=== PATIENT | female | born 1945 | race Caucasian/White ===

== ENCOUNTER 2017-02-23 09:20 | Outpatient (CLI) | payer MEDICARE, OTHER ==
--- NOTE | 2017-02-23 16:14 | DEXA Report ---
NO INDICATION GIVEN PLEASE VERIFY REQUESTED SPECIFICS re: USE T-SCORE FOR L3 ONLY (remove from other levels?); only T-score for radius? UNSURE - ONLY USE PART(S) OF THE TABLE/WHAT REMOVED? DEXA SCAN: 02/23/2017 *NOTE RADIUS/ULNA USED INSTEAD OF HIP. *USE LUMBAR T-SCORE FOR L3 ONLY. *USE TOTAL RADIUS T-SCORE OF -2.8. INDICATION: TECHNIQUE: Dual energy x-ray absorptiometry (DXA) was performed on a [employer] system. Regions measured are the AP spine, femoral neck, and, if needed, forearm. COMPARISON: None. In accordance with the International Society for Clinical Densitometry (ISCD) guidelines, data from previous exams may be reanalyzed using current recommendations and techniques. This is done to allow a more accurate basis for comparison with the current study. FINDINGS Data for the lumbar spine is as follows: REGION BMD (g/cm/cm) T-SCORE Z-SCORE L1 0.957 --- 0.2 L2 0.967 --- -0.3 L3 1.049 -1.3 0.4 L4 1.311 --- 2.6 TOTAL 1.076 -0.9 0.8 NOTE: All evaluable vertebrae are used for classification. Data for the forearm is as follows: REGION BMD (g/cm/cm) T-SCORE Z-SCORE Radius 1/3 0.732 -1.6 --- Radius Total 0.504 -2.8 --- NOTE: The 33% radius of the non-dominant forearm is used for classification. IMPRESSION: THE WHO CLASSIFICATION BASED ON THE INTERNATIONAL REFERENCE STANDARD IS OSTEOPOROSIS. FRACTURE RISK IS INCREASED. RECOMMENDATION: Patients with diagnosis of osteoporosis or osteopenia should have regular bone mineral density assessment. For those eligible for Medicare, routine testing is allowed once every 2 years. Testing frequency can be increased for patients who have rapidly progressing disease or for those who are receiving medical therapy to restore bone mass. COMMENT: World Health Organization (WHO) definitions for osteoporosis and osteopenia: NORMAL BMD: T-score at -1.0 or higher, fracture risk is low. OSTEOPENIA BMD: T-score between -1.0 and -2.5, fracture risk is increased. OSTEOPOROSIS BMD: T-score at -2.5 or lower, fracture risk high. National Osteoporosis Foundation recommends: 1. Obtain adequate dietary calcium (at least 1200 mg per day) and vitamin D (400 -800 international units per day). 2. Participate, as appropriate, in regular weightbearing and muscle- strengthening exercise. 3. Avoid tobacco use and reduce alcohol and caffeine intake. 4. For more detailed information see the website at www.NOF.org. MTDD
== END 2017-02-23 09:21 | disposition home or self-care (01) ==
LOC: DI 09:20
PROVIDERS: ATTEND Physician Assistant
DX: M81.0 Age-related osteoporosis without current pathological fracture (principal)
CPT/HCPCS: 77080; 77081

== ENCOUNTER 2017-02-23 09:22 | Outpatient (CLI) | payer MEDICARE, OTHER ==
--- NOTE | 2017-02-25 10:11 | Mammography Report ---
INCOMPLETE - FLAGGED FOR NORMAL REQUESTED FOR BILAT. SCR. MAMMO, BUT WHICH NORMAL TEMPLATE NOT IDENTIFIED DIGITAL BILATERAL SCREENING MAMMOGRAM: 02/23/2017 COMPARISON STUDY: Mammogram 12/29/2012. Indication: Screening Mammography Technique: Bilateral MLO and CC breast views Findings: The breast parenchyma is extremely dense which may lower the sensitivity of mammography. There is no mass, architechtural distortion, or concerning cluster of microcalcifications. There are stable postoperative changes of the left breast. IMPRESSION BIRADS CATEGORY 2, BENIGN FINDINGS. Recommend annual screening mammography. JOB #: [id number] EXT JOB #: [id number] [facility]Jose Martin
== END 2017-02-23 09:23 | disposition home or self-care (01) ==
LOC: DI 09:22
PROVIDERS: ATTEND Physician Assistant
DX: Z12.31 Encounter for screening mammogram for malignant neoplasm of breast (principal)
CPT/HCPCS: 77067

== ENCOUNTER 2017-08-27 15:33 | Outpatient (CLI) | payer MEDICARE, OTHER ==
--- NOTE | 2017-08-27 19:24 | XRAY Preliminary Report ---
Exam: XR KNEE 3 VIEW RT IMPRESSION: 1. No acute nor subacute bony abnormality. 2. Tiny joint effusion. 3. 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 [facility] SITE ID: [id number]
--- NOTE | 2017-08-27 19:27 | XRAY Preliminary Report ---
Exam: XR HIP W/PELVIS 2-3V RT IMPRESSION: 1. No acute bony abnormality. 2. Fracture of the right intramedullary screws of indeterminate age. [facility] SITE ID: [id number]
--- NOTE | 2017-08-27 19:30 | XRAY Preliminary Report ---
Exam: XR FEMUR 1V RT IMPRESSION: 1. No acute nor subacute bony abnormality. 2. Fracture of the base of the intramedullary hardware right femoral neck of indeterminate age. [facility] SITE ID: [id number]
--- NOTE | 2017-08-27 19:33 | XRAY Report ---
EXAM: RIGHT KNEE RADIOGRAPHY EXAM DATE: 08/27/2017 04:10 PM. CLINICAL HISTORY: Fall on 07/09/2017. Right knee pain. COMPARISON: None. TECHNIQUE: 3 views. FINDINGS: Bones: Normal. No fractures or bone lesions. Partial visualization of the femoral diaphyseal intramed ullary samson. Joints: Moderate narrowing lateral aspect patellofemoral compartment with moderate osteophytes and mi ld subcortical sclerosis. Normal caliber medial and lateral joint compartments. Bones in anatomic ali gnment. Very tiny joint effusion. Soft Tissues: Normal. No soft tissue swelling. IMPRESSION: 1. No acute nor subacute bony abnormality. 2. Tiny joint effusion. 3. Mild chondromalacia patella, grade 2 by Kellgren Ajay classification. [facility] Referring Provider Line: [phone] SITE ID: [id number]
--- NOTE | 2017-08-27 19:42 | XRAY Report ---
EXAM: RIGHT HIP AND PELVIS RADIOGRAPHY EXAM DATE: 08/27/2017 04:11 PM. HISTORY: Fall 07/09/2017. Right hip pain. COMPARISONS: None. TECHNIQUE: 1 view of the pelvis and 1 view of the hip. FINDINGS: Bones: Normal. No fracture or bone lesion. Joints: Remote ORIF left femoral neck. Remote ORIF right femoral neck, with subsequent bone graft and cerclage wires piggyback on the latera l aspect proximal third right femur. Fracture of the bases of the intramedullary screws traversing th e femoral neck. Marked degenerative disk disease L4-L5 and L5-S1. Mild degenerative changes both hips. Soft Tissues: Normal. No soft tissue swelling. IMPRESSION: 1. No acute bony abnormality. 2. Fracture of the right femoral neck intramedullary screws of indeterminate age. [facility] Referring Provider Line: [phone] SITE ID: [id number]
--- NOTE | 2017-08-27 19:43 | XRAY Report ---
EXAM: RIGHT FEMUR RADIOGRAPHY EXAM DATE: 08/27/2017 04:10 PM. CLINICAL HISTORY: Fall 07/09/2017. Persistent pain since then. COMPARISON: None. TECHNIQUE: 4 views. FINDINGS: Bones: Normal. No fracture or bone lesion. Joints: Tiny right knee effusion. Remote ORIF right femoral neck with subsequent bone graft and cerclage wires off the lateral aspect p roximal third right femur. Fracture through the base of the intramedullary component right femoral neck. Restless surgical hardw are intact without evidence of migration. Mild degenerative changes right hip. Soft Tissues: Normal. No soft tissue swelling. IMPRESSION: 1. No acute nor subacute bony abnormality. 2. Fracture of the base of the intramedullary hardware right femoral neck of indeterminate age. [facility] Referring Provider Line: [phone] SITE ID: [id number]
== END 2017-08-27 15:34 | disposition home or self-care (01) ==
LOC: DI.N 15:33
PROVIDERS: ATTEND Physician Assistant
DX: T84.114A Breakdown (mechanical) of internal fixation device of right femur, initial encounter (principal); M25.461 Effusion, right knee; M22.41 Chondromalacia patellae, right knee

== ENCOUNTER 2018-02-23 08:49 | Outpatient (CLI) | payer MEDICARE, OTHER ==
--- NOTE | 2018-02-24 11:07 | Mammography Report ---
Reason: SCREENING MAMMO Procedure Date: 02/23/2018 Accession Number: [id number] / [id number] Procedure: MGN - Screening Mammo Dig Bilat CPT Code: FULL RESULT: EXAM: Screening Mammo Dig Bilat DATE: 02/23/2018 9:14 AM CLINICAL HISTORY: Routine screening, family history of breast cancer, personal history of breast biopsy. TECHNIQUE: Bilateral CC and MLO views were obtained. COMPARISON: 02/23/2017, 05/22/2015, 12/29/2012, 12/10/2010 FINDINGS: The breast tissue is heterogeneously dense. No significant interval change. No suspicious masses, clustered microcalcifications, or regions of architectural distortion are identified. Extensive benign-appearing calcifications as before. IMPRESSION: Benign findings RECOMMENDATION: Routine annual screening unless otherwise clinically indicated. BIRADS CATEGORY 2: Benign findings STANDARD QUALIFYING STATEMENTS: 1. This examination was reviewed with the aid of Computer-Aided Detection (CAD). 2. A negative or benign imaging report should not delay biopsy if clinically suspicious findings are present. Consider surgical consultation if warrented. More than 5% of cancers are not identified by imaging. 3. Dense breasts may obscure an underlying neoplasm.
== END 2018-02-23 08:50 | disposition home or self-care (01) ==
LOC: DI.N 08:49
PROVIDERS: ATTEND Physician Assistant
DX: Z12.31 Encounter for screening mammogram for malignant neoplasm of breast (principal); Z80.3 Family history of malignant neoplasm of breast
CPT/HCPCS: 77067

== ENCOUNTER 2018-02-24 10:09 | Outpatient (CLI) | payer MEDICARE, OTHER ==
--- NOTE | 2018-02-25 09:51 | DEXA Report ---
Reason: OSTEOPOROSIS Procedure Date: 02/24/2018 Accession Number: [id number] / [id number] Procedure: DEX - Dexa Spine and/or Hip CPT Code: FULL RESULT: EXAM: Dexa Spine and/or Hip, Dexa Forearm DATE: 02/24/2018 11:00 AM CLINICAL HISTORY: OSTEOPOROSIS. Postsurgical changes bilateral hips. TECHNIQUE: Dual energy x-ray absorptiometry (DXA) was performed on a [employer] System. Regions measured are the AP Spine, femoral neck, and if needed forearm. COMPARISON: 02/23/2017 In accordance with the International Society for Clinical Densitometry (ISCD) guidelines, data from previous exams may be reanalyzed using current recommendations and techniques. This is done to allow a more accurate basis for comparison with the current study. FINDINGS: The data for the lumbar spine is as follows: BMD (g/cm/cm) T-SCORE Z-SCORE REGION L1 1.023 -0.9 0.8 L2 0.974 -1.9 -0.2 L3 1.122 -0.7 1.1 L4 1.437 2.0 3.7 TOTAL 1.164 -0.1 1.6 NOTE: All evaluable vertebrae are used for classification The data for the Left forearm is as follows: BMD (g/cm/cm) T-SCORE Z-SCORE REGION 1/3 0.754 -1.4 0.8 NOTE: The 33% radius of the nondominant forearm is used for classification. DXA RESULTS SUMMARY: Spine SCAN DATE AGE BMD CHANGE VS CHANGE VS PREVIOUS PREVIOUS % 02[birth year]24/2018 [age] 1.89 0.088* 8.2* 02/23/2017 [age] 1.076 * Denotes significant change at the 95% confidence level. Denotes dissimilar scan types or analysis methods. DXA RESULTS SUMMARY: Forearm SCAN DATE [age]GE BMD CHANGE VS CHANGE VS PREVIOUS PREVIOUS % 02[birth year]24/2018 [age] 0.754 0.022 3.0 02/23/2017 [age] 0.732 * Denotes significant change at the 95% confidence level. Denotes dissimilar scan types or analysis methods. IMPRESSION: THE WHO CLASSIFICATION BASED ON THE INTERNATIONAL REFERENCE STANDARD IS OSTEOPENIA. THE FRACTURE RISK IS INCREASED. RECOMMENDATION: Patients with diagnosis of osteoporosis or osteopenia should have regular bone mineral density assessment. For those eligible for Medicare, routine testing is allowed once every 2 years. Testing frequency can be increased for patients who have rapidly progressing disease or for those who are receiving medical therapy to restore bone mass. COMMENT: World Health Organization (WHO) definitions for osteoporosis and osteopenia: NORMAL BMD: T-score at -1.0 or higher, fracture risk is low OSTEOPENIA BMD: T-score between -1.0 and -2.5, fracture risk is increased. OSTEOPOROSIS BMD: T-score at -2.5 or lower, fracture risk is high. National Osteoporosis Foundation recommends: 1. Obtain adequate dietary calcium (at least 1200 mg per day) and vitamin D (400-800 international units per day). 2. Participate, as appropriate, in regular weightbearing and muscle-strengthening exercise. 3. Avoid tobacco use and reduce alcohol and caffeine intake. 4. For more detailed information see the website at www.NOF.org.
--- NOTE | 2018-02-25 09:51 | DEXA Report ---
Reason: OSTEOPOROSIS Procedure Date: 02/24/2018 Accession Number: [id number] / [id number] Procedure: DEX - Dexa Forearm CPT Code: FULL RESULT: EXAM: Dexa Spine and/or Hip, Dexa Forearm DATE: 02/24/2018 11:00 AM CLINICAL HISTORY: OSTEOPOROSIS. Postsurgical changes bilateral hips. TECHNIQUE: Dual energy x-ray absorptiometry (DXA) was performed on a [employer] System. Regions measured are the AP Spine, femoral neck, and if needed forearm. COMPARISON: 02/23/2017 In accordance with the International Society for Clinical Densitometry (ISCD) guidelines, data from previous exams may be reanalyzed using current recommendations and techniques. This is done to allow a more accurate basis for comparison with the current study. FINDINGS: The data for the lumbar spine is as follows: BMD (g/cm/cm) T-SCORE Z-SCORE REGION L1 1.023 -0.9 0.8 L2 0.974 -1.9 -0.2 L3 1.122 -0.7 1.1 L4 1.437 2.0 3.7 TOTAL 1.164 -0.1 1.6 NOTE: All evaluable vertebrae are used for classification The data for the Left forearm is as follows: BMD (g/cm/cm) T-SCORE Z-SCORE REGION 1/3 0.754 -1.4 0.8 NOTE: The 33% radius of the nondominant forearm is used for classification. DXA RESULTS SUMMARY: Spine SCAN DATE AGE BMD CHANGE VS CHANGE VS PREVIOUS PREVIOUS % 02[birth year]24/2018 [age] 1.164 0.088* 8.2* 02/23/2017 71.9 1.076 * Denotes significant change at the 95% confidence level. Denotes dissimilar scan types or analysis methods. DXA RESULTS SUMMARY: Forearm SCAN DATE AGE BMD CHANGE VS CHANGE VS PREVIOUS PREVIOUS % 02/24/2018 [age] 0.754 0.022 3.0 02/23/2017 71.9 0.732 * Denotes significant change at the 95% confidence level. Denotes dissimilar scan types or analysis methods. IMPRESSION: THE WHO CLASSIFICATION BASED ON THE INTERNATIONAL REFERENCE STANDARD IS OSTEOPENIA. THE FRACTURE RISK IS INCREASED. RECOMMENDATION: Patients with diagnosis of osteoporosis or osteopenia should have regular bone mineral density assessment. For those eligible for Medicare, routine testing is allowed once every 2 years. Testing frequency can be increased for patients who have rapidly progressing disease or for those who are receiving medical therapy to restore bone mass. COMMENT: World Health Organization (WHO) definitions for osteoporosis and osteopenia: NORMAL BMD: T-score at -1.0 or higher, fracture risk is low OSTEOPENIA BMD: T-score between -1.0 and -2.5, fracture risk is increased. OSTEOPOROSIS BMD: T-score at -2.5 or lower, fracture risk is high. National Osteoporosis Foundation recommends: 1. Obtain adequate dietary calcium (at least 1200 mg per day) and vitamin D (400-800 international units per day). 2. Participate, as appropriate, in regular weightbearing and muscle-strengthening exercise. 3. Avoid tobacco use and reduce alcohol and caffeine intake. 4. For more detailed information see the website at www.NOF.org.
== END 2018-02-24 10:10 | disposition home or self-care (01) ==
LOC: DI 10:09
PROVIDERS: ATTEND Physician Assistant
DX: M85.88 Other specified disorders of bone density and structure, other site (principal); N95.8 Other specified menopausal and perimenopausal disorders
CPT/HCPCS: 77080; 77081

== ENCOUNTER 2018-04-20 15:17 | Outpatient (CLI) | payer MEDICARE, OTHER | END 2018-04-20 15:18 | disposition critical access hospital (66) | LOC: EMS 15:17 | PROVIDERS: ATTEND Surgery | DX: R07.9 Chest pain, unspecified (principal); R53.83 Other fatigue | CPT/HCPCS: A0425; A0427 ==

== ENCOUNTER 2018-04-20 15:37 | Emergency (ER) | payer MEDICARE, OTHER ==
--- NOTE | 2018-04-20 15:39 | ED Physician Documentation ---
PD HPI CHEST PAIN - Stated complaint Stated Complaint: CHESTPX - History obtained from History obtained from: Patient, EMS - History of Present Illness Timing - onset: Today Timing - onset during: Light activity Timing - duration: Minutes (15-20 minutes, then resolved with NTG x 2.) Timing - details: Abrupt onset, Now resolved. No: Still present Quality: Pressure, Tightness Location: Substernal Radiation: Neck. No: Back Improved by: Nitro (took NTG for first time with this; had gotten Rx from Cardiology on recent visit (Dr. Cabrera). Has ECHO/nuclear stress scheduled for Jun 10.). No: Rest Worsened by: No: Exertion Associated symptoms: Shortness of air, Feeling faint / dizzy. No: Nausea, Palpitations, Cough Similar symptoms before: No diagnosis (has had pressure episodes not strictly exertional for the past 2 months. can occur with activity or at rest, and can do activity without the pain at times too.) Recently seen: Clinic Review of Systems Constitutional: denies: Fever, Chills Nose: denies: Rhinorrhea / runny nose, Congestion Throat: denies: Sore throat Respiratory: denies: Cough GI: denies: Abdominal Pain, Nausea, Vomiting Skin: denies: Rash, Lesions Musculoskeletal: denies: Neck pain, Back pain Neurologic: reports: Generalized weakness. denies: Focal weakness, Numbness, Near syncope PD PAST MEDICAL HISTORY - Past Medical History Cardiovascular: Hypertension, [place] Endocrine/Autoimmune: Type 2 diabetes Musculoskeletal: Osteoarthritis, Osteoporosis - Past Surgical History Cardiovascular: Angioplasty - Present Medications Home Medications: Ambulatory Orders Medication Instructions Recorded Confirmed Aspirin 04/20/18 04/20/18 Atorvastatin [Lipitor] 04/20/18 Insulin Aspart [NovoLOG] 04/20/18 Insulin Glargine [Lantus Solostar] 0 unit 04/20/18 Lisinopril 04/20/18 Metoprolol Succinate [Toprol Xl] 25 mg PO DAILY #20 tablet 04/20/18 - Allergies Allergies/Adverse Reactions: Allergies Allergy/AdvReac Type Severity Reaction Status Date / Time No Known Drug Allergies Allergy Verified 04/20/18 15:56 PD ED PE NORMAL - Vitals Vital signs reviewed: Yes - General General: Alert and oriented X 3, No acute distress, Well developed/nourished - HEENT HEENT: Pharynx benign - Neck Neck: Supple, no meningeal sign, No adenopathy - Cardiac Cardiac: RRR, No murmur - Respiratory Respiratory: Clear bilaterally - Abdomen Abdomen: Soft, Non tender - Derm Derm: Normal color, Warm and dry - Extremities Extremities: No tenderness to palpate, Normal ROM s pain, No edema, No calf ten derness / cord Results - Vitals Vitals: Oxygen O2 Source Room air - EKG (time done) 17:42 Rate: Rate (enter#) Rhythm: NSR (75) Steele: Normal Intervals: Normal NM QRS: Normal Ischemia: Normal ST segments. No: ST elevation c/w ischemia, ST depression - Labs Labs: Laboratory Tests 04/20/18 04/20/18 04/20/18 16:23 16:23 16:23 WBC 8.1 RBC 3.96 L Hgb 12.1 Hct 35.2 L MCV 88.8 MCH 30.6 MCHC 34.4 RDW 14.2 Plt Count 161 MPV 9.7 Neut # (Auto) 5.8 Lymph # (Auto) 1.5 [place] # (Auto) 0.6 Eos # (Auto) 0.1 Baso # (Auto) 0.1 Absolute Nucleated RBC 0.00 Nucleated RBC % 0.0 Sodium 136 Potassium 3.9 Chloride 102 Carbon Dioxide 25 Anion Gap 9.0 BUN 30 H Creatinine 1.3 H Estimated GFR (MDRD) 40 L Glucose 301 H Calcium 9.1 Total Bilirubin 0.6 AST 19 ALT 18 Alkaline Phosphatase 60 Troponin I < 0.04 Total Protein 6.8 Albumin 3.9 Globulin 2.9 Albumin/Globulin Ratio 1.3 Lipase 58 H 04/20/18 18:20 WBC RBC Hgb Hct MCV MCH MCHC RDW Plt Count MPV Neut # (Auto) Lymph # (Auto) [place] # (Auto) Eos # (Auto) Baso # (Auto) Absolute Nucleated RBC Nucleated RBC % Sodium Potassium Chloride Carbon Dioxide Anion Gap BUN Creatinine Estimated GFR (MDRD) Glucose Calcium Total Bilirubin AST ALT Alkaline Phosphatase Troponin I < 0.04 Total Protein Albumin Globulin Albumin/Globulin Ratio Lipase - Rads (name of study) chest xray Radiology: Prelim report reviewed, EMP read contemporaneously (normal) PD MEDICAL DECISION MAKING - ED course Complexity details: considered differential, d/w patient, d/w sap portal consultant (radio electronics technician cardiology, who said the patient is not on antianginal meds regularly and would want to start those (beta himanshu and then nitrates) and would need to have symptoms with both those before considered candidate for urgent PCI, unless ECG or Troponin changes, or fails stratifying tests. ) Departure - Departure Disposition: 01 Home, Self Care Clinical Impression: Progressive angina Chest pain Qualifiers: Chest pain type: precordial pain Qualified Code(s): R07.2 - Precordial pain Condition: Stable Record reviewed to determine appropriate education?: Yes Instructions: ED Chest Pain Angina Stable Follow-Up: Ella Armijo PA-C [Primary Care Provider] - Jamie Cabrera MD [Physician No Access] - Prescriptions: Metoprolol Succinate [Toprol Xl] 25 mg PO DAILY #20 tablet Comments: Talk to the on-call hand laminator for Dr. Cabrera. He stated chest pain episodes are worrisome for angina and they will want to investigate it more promptly/urgently than the scheduled tests in May. Dr. Cabrera's office will call you tomorrow to set up something more promptly. However he did not feel that it met the level of urgency of needing to have you transferred to their hospital but would treated with anti-anginal medicines more aggressively. We will add metoprolol daily. Continue with the nitroglycerin when needed for chest pain episodes. If you still have occasional chest pain episodes, we can also add a long-acting oral nitrate but the hand laminator on-call did not want to add to medicines together right now. Return if worsening or persistent pain despite the nitroglycerin and again follow-up with Dr. Cabrera's office tomorrow. Discharge Date/Time: 04/20/18 21:05
[2018-04-20 16:34] LABS: BASOPHILS # (AUTO) 0.1 10^3/uL (0.0-0.1); BASOPHILS % (AUTO) 0.7 %; EOSINOPHILS # (AUTO) 0.1 10^3/uL (0.0-0.7); EOSINOPHILS % (AUTO) 1.5 %; HGB - HEMOGLOBIN 12.1 g/dL (12.0-16.0); LYMPHOCYTES # (AUTO) 1.5 10^3/uL (1.5-3.5); LYMPHOCYTES % (AUTO) 18.6 %; MEAN CORPUSCULAR HEMOGLOBIN 30.6 pg (27.0-31.0); MEAN CORPUSCULAR HGB CONC 34.4 g/dL (32.0-36.0); MEAN CORPUSCULAR VOLUME 88.8 fL (81.0-99.0); MEAN PLATELET VOLUME 9.7 fL (7.9-10.8); MONOCYTES # (AUTO) 0.6 10^3/uL (0.0-1.0); MONOCYTES % (AUTO) 7.7 %; NEUTROPHILS # (AUTO) 5.8 10^3/uL (1.5-6.6); NEUTROPHILS % (AUTO) 71.5 %; PLT - PLATELET COUNT 161 10^3/uL (130-450); RED BLOOD COUNT 3.96 10^6/uL (4.20-5.40); RED CELL DISTRIBUTION WIDTH 14.2 % (12.0-15.0); WHITE BLOOD COUNT 8.1 x10^3/uL (4.8-10.8)
[2018-04-20 16:47] LABS: ALBUMIN 3.9 g/dL (3.2-5.5); ALBUMIN/GLOBULIN RATIO 1.3 (1.0-2.2); BILIRUBIN,TOTAL 0.6 mg/dL (0.2-1.0); CALCIUM 9.1 mg/dL (8.5-10.3); CREATININE 1.3 mg/dL (0.4-1.0); TOTAL PROTEIN 6.8 g/dL (6.7-8.2)
--- NOTE | 2018-04-20 16:57 | XRAY Report ---
Reason: chest pain Procedure Date: 04/20/2018 Accession Number: [id number] / [id number] Procedure: XR - Chest 1 View X-Ray CPT Code: 43025 FULL RESULT: EXAM: CHEST RADIOGRAPHY EXAM DATE: 04/20/2018 04:42 PM. CLINICAL HISTORY: Left-sided chest pain for 1 hour. COMPARISON: None. TECHNIQUE: 1 view. FINDINGS: Lungs/Pleura: No focal opacities evident. No pleural effusion. No pneumothorax. Mediastinum: Within exam limitations, the cardiomediastinal contour is normal. Other: Several old left rib fractures. Cholecystectomy. IMPRESSION: Normal single view chest. [facility]
[2018-04-20] MEDS: NITROGLYCERIN SL 0.4 MG TABLET SL STA (19:31)
[2018-04-20] MEDS: METOPROLOL 5 MG/5 ML VIAL IVP STA (20:08)
[2018-04-20] MEDS: METOPROLOL SUCCINATE 25 MG TABLET PO STA (21:08)
[2018-04-20 21:22] VITALS: BP 119/84
== END 2018-04-20 21:05 | disposition home or self-care (01) ==
LOC: EDUNIT# → ED 15:37
DX: I20.0 Unstable angina (principal); R07.2 Precordial pain; I10 Essential (primary) hypertension; I25.2 Old myocardial infarction; E11.9 Type 2 diabetes mellitus without complications; Z79.4 Long term (current) use of insulin; Z98.61 Coronary angioplasty status; Z79.82 Long term (current) use of aspirin; R94.31 Abnormal electrocardiogram [ECG] [EKG]
CPT/HCPCS: 36415; 71045; 80053; 83690; 84484; 85025; 93005; 96374; 99283; 99285

== ENCOUNTER 2019-03-01 08:50 | Outpatient (CLI) | payer MEDICARE, OTHER ==
--- NOTE | 2019-03-03 10:29 | Mammography Report ---
Reason: SCREENING MAMMO Procedure Date: 03/01/2019 Accession Number: [id number] / [id number] Procedure: MGN - Screening Mammo Dig Bilat CPT Code: Final Report FULL RESULT: EXAM: Screening Mammo Dig Bilat DATE: 03/01/2019 9:19 AM CLINICAL HISTORY: Routine screening. Sister with breast cancer. History of benign left breast biopsy. TECHNIQUE: (B) - Bilateral CC and MLO views were obtained. COMPARISON: 02/23/2018, 02/23/2017, 05/22/2015, 12/29/2012, 12/10/2010, 11/18/2009 PARENCHYMAL PATTERN: (D) - The breasts demonstrate heterogeneously dense fibroglandular parenchyma bilaterally. FINDINGS: No significant interval change. There are no suspicious masses, calcifications, or areas of distortion. Extensive bilateral benign appearing calcifications again noted. IMPRESSION: Benign findings. BI-RADS category 2. RECOMMENDATION: (ANNUAL) - Recommend routine annual screening mammography. BI-RADS CATEGORY: (2) - Benign Findings. STANDARD QUALIFYING STATEMENTS: 1. This examination was not reviewed with the aid of Computer-Aided Detection (CAD). 2. A negative or benign imaging report should not preclude biopsy if clinically suspicious findings are present. 3. Dense breasts may obscure an underlying neoplasm. 4. This examination was reviewed without the aid of 3D breast imaging (tomosynthesis).
== END 2019-03-01 08:51 | disposition home or self-care (01) ==
LOC: DI.N 08:50
PROVIDERS: ATTEND Internal Medicine
DX: Z12.31 Encounter for screening mammogram for malignant neoplasm of breast (principal); Z80.3 Family history of malignant neoplasm of breast
CPT/HCPCS: 77067

== ENCOUNTER 2019-11-17 11:51 | Emergency (ER) | payer MEDICARE, OTHER ==
--- NOTE | 2019-11-17 13:21 | XRAY Report ---
PROCEDURE: Hip w/Pelvis 2-3V RT INDICATIONS: injury to rt hip TECHNIQUE: AP pelvis with lateral view(s) of the right pelvis and right hip 08/27/2017 hip(s). COMPARISON: None. FINDINGS: Bones: No fractures or dislocations. Pelvic ring appears intact. No suspicious bony lesions. Bila teral hip and femoral pin fixation is present. Degenerative changes are present within the lower lumb ar spine. Soft tissues: The visualized bowel gas pattern is normal. No suspicious soft tissue calcifications. IMPRESSION: Postsurgical changes as above. No visualized acute fracture or dislocation. However, occ ult injury cannot be excluded. Recommend short interval imaging follow-up in 7-10 days as clinically indicated for additional evaluation. Reviewed by: Delmi Avina MD on 11/17/2019 1:19 PM PDT Approved by: Delmi Avina MD on 11/17/2019 1:19 PM PDT Station ID: [id number]
--- NOTE | 2019-11-17 13:29 | ED Physician Documentation ---
PD HPI Fall - Stated complaint Stated Complaint: GLF - RT SIDE PX - Chief complaint Chief Complaint: General - History obtained from History obtained from: Patient - History of Present Illness Mechanism of injury: Lost balance (she says she [place] on [place] usual walk with friend, and the wind picked up and was causing her to lean into the wind, and a albin caused her to go off balance and "blew her over". Landed to right side, with pain right shoulder and lateral hip/thigh. Helped up and walked off beach, hurting.) Fall distance: Standing position Where injury occurred: Other (on the beach) Injury(ies) location: Right Upper Extremity (shoulder posterolateral and proximal humerus area.), Right Lower Extremity (lateral hip and thigh, down to lateral knee area. Prior hip repair so concerned about the hardware in hip.) Associated symptoms: No: LOC, AMS, Nausea / vomiting Worsens with: Movement (of right shoulder laterally and extension. Right lateral hip hurting with ROM of the leg.) Recently seen: Not recently seen Review of Systems Constitutional: denies: Fever, Chills Nose: denies: Rhinorrhea / runny nose, Congestion Throat: denies: Sore throat Cardiac: denies: Chest pain / pressure Respiratory: denies: Cough GI: denies: Abdominal Pain, Nausea, Vomiting Musculoskeletal: reports: Extremity pain. denies: Neck pain, Back pain Neurologic: denies: Altered mental status, Headache, Head injury PD PAST MEDICAL HISTORY - Past Medical History Past Medical History: Yes Cardiovascular: Hypertension, DE Endocrine/Autoimmune: Type 2 diabetes Musculoskeletal: Osteoarthritis, Osteoporosis - Past Surgical History Past Surgical History: Yes General: Cholecystectomy, Appendectomy Ortho: Hip replacement (repair of previous fracture) Cardiovascular: Angioplasty HEENT: Tonsil/Adenoidectomy - Present Medications Home Medications: Ambulatory Orders Medication Instructions Recorded Confirmed Aspirin 81 mg 04/20/18 04/20/18 Atorvastatin [Lipitor] 40 mg 04/20/18 Insulin Aspart [NovoLOG] 10 unit 04/20/18 Insulin Glargine [Lantus Solostar] 40 unit 04/20/18 Metoprolol Succinate [Toprol Xl] 25 mg PO DAILY #20 tablet 04/20/18 lisinopriL [Lisinopril] 5 mg 04/20/18 Cholecalciferol [Vitamin D3] 07/17/20 Hydrocodone/Acetaminophen [Blunt 1 each PO TID PRN #12 tablet 11/17/19 5-325 Tablet] Metronidazole 1% Gel [Metrogel] 11/17/19 Naproxen 375 mg PO BID #20 tablet 11/17/19 - Allergies Allergies/Adverse Reactions: Allergies Allergy/AdvReac Type Severity Reaction Status Date / Time No Known Drug Allergies Allergy Verified 11/17/19 13:32 - Social History Does the pt smoke?: No Smoking Status: Never smoker Does the pt drink ETOH?: No Does the pt have substance abuse?: No - Immunizations Immunizations are current?: Yes - POLST Patient has POLST: No PD ED PE NORMAL - Vitals Vital signs reviewed: Yes - General General: Alert and oriented X 3, Well developed/nourished - HEENT HEENT: Atraumatic - Neck Neck: Supple, no meningeal sign, No bony TTP - Cardiac Cardiac: RRR, No murmur - Respiratory Respiratory: Clear bilaterally, Other (no cehstwall tenderness) - Abdomen Abdomen: Soft, Non tender - Derm Derm: Normal color, Warm and dry - Extremities Extremities: Other (right posterior shoulder with some tenderness in suprascapular area. Not tender at AC nor clavicle area. Guarde ROM of the shoulder. Right lateral hip at lateral trochanter area with some tenderness. No tenderness at inguinal area. Knee not tender itself, and no effusion. ) - Neuro Neuro: Alert and oriented X 3, No motor deficit, No sensory deficit, Normal speech Results - Vitals Vitals: Vital Signs - 24 hr 11/17/19 11/17/19 11/17/19 11:57 12:00 13:52 Temperature 36.8 C 36.6 C Heart Rate 72 76 76 Respiratory 16 15 12 Rate Blood Pressure 136/66 H 138/81 H 127/68 O2 Saturation 100 99 98 11/17/19 15:42 Temperature Heart Rate 67 Respiratory 11 L Rate Blood Pressure 112/70 O2 Saturation 97 Oxygen O2 Source Room air - Labs Labs: Laboratory Tests 11/17/19 12:03 POC Whole Bld Glucose 178 H - Rads (name of study) right thigh Radiology: Prelim report reviewed (no fracture; prior surgical changes intact. ), See rad report right shoulder Radiology: Prelim report reviewed (arthritic changes; no acute fracture.), See rad report PD MEDICAL DECISION MAKING - ED course Complexity details: considered differential (no noted fractures on xrays. To give some pain meds for hurting. ), d/w patient Departure - Departure Disposition: 01 Home, Self Care Clinical Impression: Fall, accidental Qualifiers: Encounter type: initial encounter Qualified Code(s): W19.XXXA - Unspecified fall, initial encounter Shoulder contusion Qualifiers: Encounter type: initial encounter Laterality: right Qualified Code(s): S40.011A - Contusion of right shoulder, initial encounter Hip strain Qualifiers: Encounter type: initial encounter Laterality: right Qualified Code(s): S76.011A - Strain of muscle, fascia and tendon of right hip, initial encounter Condition: Stable Record reviewed to determine appropriate education?: Yes Follow-Up: Alber Shrestha MD [Primary Care Provider] - Prescriptions: Naproxen 375 mg PO BID #20 tablet Hydrocodone/Acetaminophen [Blunt 5-325 Tablet] 1 each PO TID PRN #12 tablet PRN Reason: Pain Comments: No signs of fractures on your x-rays. Presume its just sore from falling and landing. You can use some anti-inflammatory such as naproxen. To that add Tylenol or pain medicine if needed. I would anticipate improvement over the next several days and resolution within several days to a week. Discharge Date/Time: 11/17/19 16:16
[2019-11-17] MEDS ORDERED: HYDROcod/ACETAM 5/325 MG TABLET PO STA (13:58)
--- NOTE | 2019-11-17 14:27 | XRAY Report ---
PROCEDURE: Shoulder 3 View RT INDICATIONS: fall with shoulder injury TECHNIQUE: 3 views of the shoulder were acquired. COMPARISON: None. FINDINGS: Bones: No fractures or dislocations. Moderate acromioclavicular joint and glenohumeral joint osteoph ytic changes are seen. No suspicious bony lesions. Visualized ribs appear intact. Soft tissues: No suspicious soft tissue calcifications. IMPRESSION: No acute right shoulder fracture or dislocation. Moderate shoulder joint osteoarthritis. Reviewed by: Sharan Canales MD on 11/17/2019 2:26 PM PDT Approved by: Sharan Canales MD on 11/17/2019 2:26 PM PDT Station ID: [id number]
[2019-11-17 15:42] VITALS: BP 112/70
== END 2019-11-17 16:16 | disposition home or self-care (01) ==
LOC: ED 11:51
DX: S40.011A Contusion of right shoulder, initial encounter (principal); S76.011A Strain of muscle, fascia and tendon of right hip, initial encounter; W18.39XA Other fall on same level, initial encounter; Y93.01 Activity, walking, marching and hiking; Y92.832 Beach as the place of occurrence of the external cause; I10 Essential (primary) hypertension; E11.9 Type 2 diabetes mellitus without complications; Z96.641 Presence of right artificial hip joint; Z79.4 Long term (current) use of insulin
CPT/HCPCS: 73030; 73502; 99284; A9270

== ENCOUNTER 2019-11-22 12:25 | Outpatient (CLI) | payer MEDICARE, OTHER ==
--- NOTE | 2019-11-22 15:08 | XRAY Report ---
PROCEDURE: Lumbar Spine 2 View INDICATIONS: RT HIP- FALL-HIP/FEMUR PAIN TECHNIQUE: 2 views of the lumbar spine were acquired. COMPARISON: None. FINDINGS: Bones: 5 [id number] vertebrae are present. There is normal bony alignment. There is severe, co mplete, chronic appearing disc height loss at L4-5 and moderate to severe disc height loss L5-S1. The re are endplate sclerotic changes and mild spurs at these levels. No vertebral body compression fract ures. No suspicious bony lesions. Soft tissues: Overlying bowel gas pattern is normal. No suspicious soft tissue calcifications. Mil d atherosclerotic calcification. Surgical clips in the gallbladder fossa. Surgical changes of left hi p pinning are partially imaged. IMPRESSION: 1. No visible lumbar vertebral body fracture. 2. Severe, chronic appearing degenerative disc and endplate change at L4-5 and L5-S1. Reviewed by: Sasha Mir MD on 11/22/2019 3:07 PM PDT Approved by: Sasha Mir MD on 11/22/2019 3:07 PM PDT Station ID: [id number]
--- NOTE | 2019-11-22 15:23 | XRAY Report ---
PROCEDURE: Cervical Spine 2 View INDICATIONS: RT HIP- FALL-HIP/FEMUR PAIN TECHNIQUE: 3 view(s) of the cervical spine were acquired. COMPARISON: X-ray cervical spine 01/31/2013 FINDINGS: Bones: No fractures or dislocations to the C7-T1 level. The lateral masses of C1 appear intact on t he odontoid view. No suspicious bony lesions. There is reversal of normal cervical curvature with a pex at C5. There is trace anterolisthesis of C3 on C4, trace retrolisthesis of C4 on C5, C5 on C6. Se jah multilevel degenerative disc space narrowing is present from C3-4 through C7-T1. Small nonbridgi ng anterior osteophytes are present at multiple levels. Multilevel uncovertebral hypertrophy is also present. Soft tissues: No prevertebral soft tissue swelling. IMPRESSION: Multilevel degenerative changes as well as reversal of cervical curvature as above. Over all appearance is progressive compared to prior exam. Reviewed by: Delmi Avina MD on 11/22/2019 3:21 PM PDT Approved by: Delmi Avina MD on 11/22/2019 3:21 PM PDT Station ID: [id number]
--- NOTE | 2019-11-22 15:52 | XRAY Report ---
PROCEDURE: Pelvis 1 View INDICATIONS: RT HIP- FALL-HIP/FEMUR PAIN TECHNIQUE: 2 view(s) of the pelvis acquired. COMPARISON: X-ray pelvis 11/17/2019, CT pelvis 11/22/2019. FINDINGS: Bones: No fractures or dislocations. No suspicious bony lesions. Extensive postsurgical fusion silvestre nges are present within the hips bilaterally. Hardware appears intact. No definitive osseous fracture s identified. Soft tissues: Visualized bowel gas pattern is normal. No suspicious soft tissue calcifications. IMPRESSION: Stable interval exam demonstrating bilateral hip fusion as above. Reviewed by: Delmi Avina MD on 11/22/2019 3:51 PM PDT Approved by: Delmi Avina MD on 11/22/2019 3:51 PM PDT Station ID: [id number]
--- NOTE | 2019-11-22 16:50 | CT Report ---
PROCEDURE: PELVIS WO INDICATIONS: RT GRC-DIWO-NJZ/FEMUR PAIN TECHNIQUE: Noncontrast 3 mm axial sections acquired through the bony pelvis, with coronal and sagittal reformatt ing. For radiation dose reduction, the following was used: automated exposure control, adjustment of mA and/or kV according to patient size. COMPARISON: None. FINDINGS: Image quality: Excellent. Bones: There is a minimally displaced segmental fracture of the right superior pubic ramus. There is a minimally displaced fracture of the right inferior pubic ramus anteriorly. ORIF of the bilateral f emoral necks and shafts has been performed. Chronic fracture deformity of the right intratrochanteric femur and proximal femoral shaft is present. Hardware is intact. Soft tissues: Visualized bowel loops are normal in caliber. Visualized vasculature is normal in anh eyal. No regional adenopathy. No free pelvic fluid. No hematoma. IMPRESSION: Minimally displaced right obturator ring fracture. Reviewed by: Kelvin Coyne MD on 11/22/2019 3:49 PM AKSTEVE Approved by: Kelvin Coyne MD on 11/22/2019 3:49 PM AKDT Station ID: [id number]
== END 2019-11-22 12:26 | disposition home or self-care (01) ==
LOC: DI 12:25
PROVIDERS: ATTEND Physician Assistant
DX: S32.511A Fracture of superior rim of right pubis, initial encounter for closed fracture (principal); S32.591A Other specified fracture of right pubis, initial encounter for closed fracture; M43.12 Spondylolisthesis, cervical region; M50.31 Other cervical disc degeneration, high cervical region; M47.812 Spondylosis without myelopathy or radiculopathy, cervical region; M25.78 Osteophyte, vertebrae; M51.36 Other intervertebral disc degeneration, lumbar region; M51.37 Other intervertebral disc degeneration, lumbosacral region
CPT/HCPCS: 72040; 72100; 72170; 72192

== ENCOUNTER 2020-03-15 09:28 | Outpatient (CLI) | payer MEDICARE, OTHER ==
--- NOTE | 2020-03-15 11:59 | DEXA Report ---
PROCEDURE: Dexa Spine and/or Hip INDICATIONS: OTHER BONE DISORDER TECHNIQUE: Dual energy x-ray absorptiometry (DXA) was performed on a [employer] System. Regions measur ed are the AP Spine, femoral neck, and if needed forearm. COMPARISON: DEXA 02/24/2018 FINDINGS: Lumbar Spine: Bone Mineral Density 1.232 g/cm/cm,T score 0.3, normal, improved compared to -0.1 on prior exam. Left forearm: Bone Mineral Density 0.554 g/cm/cm, T score -2.0, compared to -1.9 on prior exam,, moderate osteopeni a. (T score greater or equal to -1.0: NORMAL) (T score from -1.1 to -2.4: OSTEOPENIA) (T score less than or equal to -2.5 to: OSTEOPOROSIS) Impression: Relatively stable osteopenia within the left forearm and improved bone mineral density in the lumbar spine. Patients with diagnosis of osteoporosis or osteopenia should have regular bone mineral density assess ment. For those eligible for Medicare, routine testing is allowed once every 2 years. Testing frequ ency can be increased for patients who have rapidly progressing disease or for those who are receivin g medical therapy to restore bone mass. Reviewed by: Delmi Avina MD on 03/15/2020 11:58 AM PST Approved by: Delmi Avina MD on 03/15/2020 11:58 AM PST Station ID: [id number]
== END 2020-03-15 09:29 | disposition home or self-care (01) ==
LOC: DI 09:28
PROVIDERS: ATTEND Physician Assistant
DX: M85.832 Other specified disorders of bone density and structure, left forearm (principal)
CPT/HCPCS: 77080; 77081

== ENCOUNTER 2020-03-29 10:25 | Outpatient (CLI) | payer MEDICARE, OTHER ==
--- NOTE | 2020-04-01 13:22 | Mammography Report ---
BILATERAL DIGITAL SCREENING MAMMOGRAM 3D/2D: 03/29/2020 CLINICAL: Family history of breast cancer. Routine screening. Comparison is made to exams dated: 03/01/2019 mammogram, 02/23/2018 mammogram, and 02/23/2017 mammog [facility]. There are scattered fibroglandular elements in both breasts. There are benign vascular calcifications in both breasts. No significant masses, calcifications, or other findings are seen in either breast. There has been no significant interval change. IMPRESSION: BENIGN There is no mammographic evidence of malignancy. A 1 year screening mammogram is recommended. This exam was interpreted at Station ID: [id number]. NOTE: For mammograms, a report in lay terms will be sent to the patient. Approximately 15% of breast malignancies will not be visualized mammographically. In the management of a palpable breast mass, a negative mammogram must not discourage biopsy of a clinically suspicious lesion. Electronically Signed By: Ned Hernandez M.D. ar/penrad:03/29/2020 11:10:10 ACR BI-RADS Category 2: Benign Finding(s) 3342F PARENCHYMAL PATTERN: (A) - The breast(s) demonstrate(s) scattered fibroglandular densities. BI-RADS CATEGORY: (2) - 2 RECOMMENDATION: (ANNUAL) - Recommend routine annual screening mammography. [id number] 1 year screening LATERALITY: (B)
== END 2020-03-29 10:26 | disposition home or self-care (01) ==
LOC: DI.N 10:25
PROVIDERS: ATTEND Physician Assistant
DX: Z12.31 Encounter for screening mammogram for malignant neoplasm of breast (principal); Z80.3 Family history of malignant neoplasm of breast

== ENCOUNTER 2020-08-20 09:13 | Outpatient (CLI) | payer MEDICARE, OTHER | END 2020-08-20 09:14 | disposition home or self-care (01) | LOC: RT 09:13 | PROVIDERS: ATTEND Internal Medicine | DX: R06.00 Dyspnea, unspecified (principal) | CPT/HCPCS: 94010 ==

== ENCOUNTER 2020-12-17 21:20 | Emergency (ER) | payer MEDICARE, OTHER ==
[2020-12-17 21:54] LABS: BASOPHILS # (AUTO) 0.1 10^3/uL (0.0-0.1); BASOPHILS % (AUTO) 0.6 %; EOSINOPHILS # (AUTO) 0.2 10^3/uL (0.0-0.7); EOSINOPHILS % (AUTO) 1.4 %; HCT - HEMATOCRIT 36.5 % (37.0-47.0); HGB - HEMOGLOBIN 12.5 g/dL (12.0-16.0); LYMPHOCYTES # (AUTO) 2.6 10^3/uL (1.5-3.5); LYMPHOCYTES % (AUTO) 23.5 %; MEAN CORPUSCULAR HEMOGLOBIN 30.1 pg (27.0-31.0); MEAN CORPUSCULAR HGB CONC 34.2 g/dL (32.0-36.0); MEAN PLATELET VOLUME 9.9 fL (7.9-10.8); MONOCYTES # (AUTO) 1.1 10^3/uL (0.0-1.0); MONOCYTES % (AUTO) 9.9 %; NEUTROPHILS % (AUTO) 64.2 %; PLT - PLATELET COUNT 205 10^3/uL (130-450); RED BLOOD COUNT 4.15 10^6/uL (4.20-5.40); RED CELL DISTRIBUTION WIDTH 13.3 % (12.0-15.0); WHITE BLOOD COUNT 10.9 x10^3/uL (4.8-10.8)
--- NOTE | 2020-12-17 22:13 | ED Physician Documentation ---
History of Present Illness - Stated complaint Stated Complaint: HIGH BLOOD PRESSURE - Chief complaint Chief Complaint: Heent - Additonal information Additional information: 75-year-old female presents the emergency department for evaluation of a humming in her left ear that was short-lived as well as concerns that her blood pressure has been elevated. She denies any chest pain or shortness of air. No syncope. She had a brief episode of humming in the left ear and became concerned that it may be related to her blood pressure so she checked it at home and found that her blood pressure was up to 155 systolic. This is higher than her normal which is typically in the 120s. She is currently under evaluation with her qi specialist for evaluation of lower than expected heart rates as she is on Metroprolol. Review of Systems Constitutional: denies: Fever, Chills Eyes: reports: Reviewed and negative Ears: reports: Tinnitus/ringing Nose: reports: Reviewed and negative Cardiac: reports: Reviewed and negative Respiratory: reports: Reviewed and negative GI: reports: Reviewed and negative : reports: Reviewed and negative Skin: reports: Reviewed and negative Musculoskeletal: reports: Reviewed and negative Neurologic: reports: Other (Resting tremor at baseline) PD PAST MEDICAL HISTORY - Past Medical History Cardiovascular: Hypertension, [place] Endocrine/Autoimmune: Type 2 diabetes Musculoskeletal: Osteoarthritis, Osteoporosis - Past Surgical History Past Surgical History: Yes General: Cholecystectomy, Appendectomy Ortho: Hip replacement (repair of previous fracture) Cardiovascular: Angioplasty HEENT: Tonsil/Adenoidectomy - Present Medications Home Medications: Ambulatory Orders Medication Instructions Recorded Confirmed Aspirin 81 mg ORAL DAILY 04/20/18 04/20/18 Insulin Aspart [NovoLOG] 10 unit SUBQ DAILY 04/20/18 Insulin Glargine [Lantus Solostar] 32 unit SUBQ DAILY 04/20/18 Metoprolol Succinate [Toprol Xl] 25 mg PO DAILY #20 tablet 04/20/18 lisinopriL [Lisinopril] 5 mg ORAL DAILY 04/20/18 Cholecalciferol [Vitamin D3] 600 unit ORAL BID 11/17/19 Metronidazole 1% Gel [Metrogel] 1 applic TOP DAILY 11/17/19 Atorvastatin Calcium 40 mg PO DAILY 12/17/20 12/17/20 Desonide [Desowen] 60 gm TP DAILY 12/17/20 12/17/20 Fluticasone [Flonase] 1 sprays JADIEL BID PRN 12/17/20 12/17/20 Multivitamin 1 each PO DAILY 12/17/20 12/17/20 - Allergies Allergies/Adverse Reactions: Allergies Allergy/AdvReac Type Severity Reaction Status Date / Time No Known Drug Allergies Allergy Verified 12/17/20 21:34 - Social History Does the pt smoke?: No Smoking Status: Never smoker Does the pt drink ETOH?: No Does the pt have substance abuse?: No - Immunizations Immunizations are current?: Yes - POLST Patient has POLST: No PD ED PE EXPANDED - General General: Alert, No acute distress - Cardiac Cardiac: Regular Rate, Radial strong equal, Pedal strong equal, Cap refill < 2 sec. No: Murmur Present - Respiratory Respiratory: Clear to ausultation gene. No: Distress, Labored - Abdomen Abdomen: Normal Bowel sounds. No: Tender to palpation - Extremities Extremities: Normal. No: Deformity, Tenderness - Neuro Neuro: Alert and Oriented X 3, CNII-XII intact - GCS Eye Opening: Spontaneous Motor: Obeys Commands Verbal: Oriented Total: 15 Results - Vitals Vitals: Vital Signs - 24 hr 12/17/20 21:25 Temperature 36.1 C L Heart Rate 67 Respiratory 16 Rate Blood Pressure 152/64 H O2 Saturation 97 Oxygen O2 Source Room air - EKG (time done) 2205 Rate: Rate (enter#) (63) Rhythm: NSR Earlimart: Anterior hemiblock Intervals: RBBB QRS: Normal Compare to prior EKG: Changed from prior EKG Computer interpretation: Disagree with computer (EKG says atrial fib. I Disagree; this is sinus rhythm regular.) - Labs Labs: Laboratory Tests 12/17/20 12/17/20 12/17/20 21:49 21:49 21:49 WBC 10.9 H RBC 4.15 L Hgb 12.5 Hct 36.5 L MCV 88.0 MCH 30.1 MCHC 34.2 RDW 13.3 Plt Count 205 MPV 9.9 Neut # (Auto) 7.0 H Lymph # (Auto) 2.6 Davidson # (Auto) 1.1 H Eos # (Auto) 0.2 Baso # (Auto) 0.1 Absolute Nucleated RBC 0.00 Nucleated RBC % 0.0 Sodium 129 L Potassium 4.1 Chloride 94 L Carbon Dioxide 25 Anion Gap 10.0 BUN 35 H Creatinine 1.1 H Estimated GFR (MDRD) 48 L Glucose 123 H Calcium 9.5 Total Bilirubin 1.0 AST 21 ALT 22 Alkaline Phosphatase 57 Troponin I High Sens 6.3 Total Protein 7.3 Albumin 4.4 Globulin 2.9 Albumin/Globulin Ratio 1.5 Lipase 54 H - Rads (name of study) CXR Radiology: Final report received, EMP read indepedently (No acute cardiopulmonary process) PD MEDICAL DECISION MAKING - ED course Complexity details: reviewed results, considered differential, d/w patient, d/w family ED course: This is a well Appearing 75-year-old female that presents the emergency department for evaluation of a brief episode of tinnitus this evening. She was concerned that it may have been caused by an elevated blood pressure so she checked it at home and found that it was in the 150s. She is on metoprolol for blood pressure control. Screening EKG here was interpreted by the computer as atrial fibrillation however I disagree; this is a sinus rhythm. She is also sinus rhythm on her monitor. She does have a resting tremor which makes the in EKG difficult to interpret. High-sensitivity troponin is negative. Screening labs do reveal a mild hyponatremia with a sodium of 129. However this is not likely to have been the cause of her brief episode of tinnitus. She is on Lasix which likely is the contributing factor to her hyponatremia. I have encouraged her to have her labs rechecked in 3 days time with her primary care provider. Departure - Departure Disposition: 01 Home, Self Care Clinical Impression: Hyponatremia, Tinnitus of left ear Condition: Stable Record reviewed to determine appropriate education?: Yes Follow-Up: Alber Shrestha MD [Primary Care Provider] - Comments: Rosa Isela rodriguez were seen in the ER today after you noticed ringing in your left ear and checked your blood pressure at home and found that the systolic was elevated to about 155. Your screening labs show that your sodium was 129 today. This is mildly low. I would like you to increase your use of table salt at home over the next 2 to 3 days. I would like your primary doctor to recheck your electrolytes and sodium in about 3 days time. The rest of your screening labs were essentially unchanged from previous. I would continue to take your blood pressure medications as you are already prescribed as your blood pressure is quite stable and healthy. If at any point you develop fevers, have sudden severe headache, chest pain or shortness of air then please return immediately to the ER for a second evaluation.
[2020-12-17 22:18] LABS: ALBUMIN 4.4 g/dL (3.2-5.5); ALBUMIN/GLOBULIN RATIO 1.5 (1.0-2.2); CALCIUM 9.5 mg/dL (8.5-10.3); CREATININE 1.1 mg/dL (0.4-1.0); POTASSIUM 4.1 mmol/L (3.5-5.0); TOTAL PROTEIN 7.3 g/dL (6.7-8.2)
[2020-12-17 22:38] VITALS: BP 143/72
--- NOTE | 2020-12-18 08:27 | XRAY Report ---
PROCEDURE: Chest 1 View X-Ray INDICATIONS: Chest pain TECHNIQUE: One view of the chest was acquired. COMPARISON: 04/20/2018 FINDINGS: Surgical changes and devices: Median sternotomy changes Lungs and pleura: No pleural effusions or pneumothorax. Lungs are clear. Mediastinum: Mediastinal contours appear normal. Heart size is normal. Bones and chest wall: No suspicious bony lesions. Overlying soft tissues appear unremarkable. IMPRESSION: No acute cardiopulmonary process demonstrated radiographically. Reviewed by: Farhan Pinon MD on 12/18/2020 8:26 AM PDT Approved by: Farhan Pinon MD on 12/18/2020 8:26 AM PDT Station ID: [id number]
== END 2020-12-17 22:39 | disposition home or self-care (01) ==
LOC: ED 21:20
DX: H93.12 Tinnitus, left ear (principal); E87.1 Hypo-osmolality and hyponatremia; I10 Essential (primary) hypertension; E11.9 Type 2 diabetes mellitus without complications; Z79.4 Long term (current) use of insulin
CPT/HCPCS: 36415; 80053; 83690; 84443; 84484; 85025; 93005; 99283; 99284

== ENCOUNTER 2021-02-27 09:16 | Outpatient (CLI) | payer MEDICARE, OTHER ==
--- NOTE | 2021-02-27 09:51 | CARDIAC PROCEDURE NOTE ---
Stress Test Report Service Date: 02/27/21 Service Time: 09:30 Ordering Provider: Janet Wilson PA-C Indication for Test: Assess exertional dyspnea in patient with known CAD and s/p CABG surgery. Significant Medical History: -Rosa Isela is referred for a treadmill stress echocardiogram today, to assess for an ischemic contribution to her chronic exertional dyspnea. She has a history of type 2 diabetes for almost 30 years with insulin treatment over about the past 5 years, as well as hypertension, hyperlipidemia and history of [place] in 1991. After an abnormal nuclear stress imaging study in late 2017 she underwent bypass surgery in May 2018. Preop symptoms were primarily exertional dyspnea without chest discomfort and unfortunately, following recovery from surgery, her exertional dyspnea persisted. A follow-up nuclear stress imaging study in April, was unrevealing of ischemia according to her understanding. She follows with Dr. Us in [place]. -In August of this year she underwent pulmonary function tests that showed an obstructive pattern, for which she has been trialed on 3 bronchodilators, with no clear improvement. Her exertional dyspnea remains somewhat variable depending on the day. She has chronic knee pain and this may also contribute somewhat to her reduced exertional activity level. She avoids stairs, though can walk up one flight without stopping, when she needs to. She does try to walk about 1 mile at a measured pace most days, with a friend who has her own orthopedic limitations. Rosa Isela denies orthopnea, PND, ankle swelling or symptoms suggestive of obstructive sleep apnea. -She prepared for the test today by reducing her long-acting insulin dose in anticipation of having a very small breakfast and she has not taken her metoprolol for the past 36 hours, though has taken her lisinopril. Cardiac Risk Factors: Positive for known coronary artery disease, status post CABG surgery; longstanding diabetes; hypertension; hyperlipidemia and family history of coronary artery disease in her father. She has never been a tobacco smoker. Type of Stress Test: ETT with Echocardiography Procedure: -Exercise Treadmill Test- After signing informed consent, the patient underwent resting echo imaging and then performed treadmill exercise using a Modified Gary protocol. The patient exercised for 9 minutes 13 seconds and achieved a peak heart rate of 140 (97 percent predicted maximum heart rate for age), and an estimated workload of 5.0 METS. The test was terminated due to fatigue/shortness of breath. Resting heart rate: 94 Peak heart rate: 140 Normal response to exercise. Resting BP: 131/66 Peak BP: 154/83 Abnormal BP response to exercise, with below average augmentation of SBP and abnormal increase in DBP. Note that at a reading at 5:49 appeared to show a marked decrease in SBP (100) but upon repeat thereafter the value was increased relative to baseline, hence we interpreted the SBP of 100 to be artifactual. Rhythm during exercise: Sinus rhythm throughout. Symptoms: No reported chest discomfort; reported dyspnea was moderate even at advanced stages of exercise. EKG at rest showed normal sinus rhythm with bifascicular block (left anterior hemiblock and right bundle branch block). EKG at peak stress showed no ischemia by EKG criteria. In Recovery heart rate and blood pressure rapidly returned to baseline levels. Echo imaging performed at rest and with stress revealed normal left ventricular size and systolic function at rest, with appropriate hyperdynamic augmentation of all segments, indicative of no prior infarct and no inducibe ischemia. See separate echo report for more detail. IJayson MD, was present throughout this treadmill stress echocardiogram and supervised it in its entirety. Summary: 1) Exercise tolerance probably at least average for age as evidenced by attainment of 5 METS. No JOSSE is available for the modified Gary protocol. 2) Abnormal resting EKG. 3) Adequate level of exercise was achieved on this treadmill stress test. 4) Abnormal BP response to exercise. 5) No ischemic changes by EKG criteria were seen at peak stress. 6) Echo image interpretation is to be reported separately. CONCLUSIONS: 1) By symptoms, EKG response and rest/stress echo imaging there was no evidence of ischemia contributing to patient's reported exertional dyspnea. 2) Low risk treadmill stress echocardiogram results.
== END 2021-02-27 09:17 | disposition home or self-care (01) ==
LOC: DI 09:16
PROVIDERS: ATTEND Physician Assistant
DX: R06.09 Other forms of dyspnea (principal)
CPT/HCPCS: 93350

== ENCOUNTER 2021-04-07 09:06 | Outpatient (CLI) | payer MEDICARE, OTHER ==
--- NOTE | 2021-04-08 14:09 | Mammography Report ---
BILATERAL DIGITAL SCREENING MAMMOGRAM 3D/2D: 04/07/2021 CLINICAL: Family history of breast cancer. Routine screening. Comparison is made to exams dated: 03/29/2020 mammogram, 03/01/2019 mammogram, 02/23/2018 mammogram, 02/23/2017 mammogram, 05/22/2015 mammogram, and 12/29/2012 mammogram - [facility]. There are scattered fibroglandular elements in both breasts. There are benign vascular calcifications in both breasts. No significant masses, calcifications, or other findings are seen in either breast. There has been no significant interval change. IMPRESSION: BENIGN There is no mammographic evidence of malignancy. A 1 year screening mammogram is recommended. This exam was interpreted at Station ID: [id number]. NOTE: For mammograms, a report in lay terms will be sent to the patient. Approximately 15% of breast malignancies will not be visualized mammographically. In the management of a palpable breast mass, a negative mammogram must not discourage biopsy of a clinically suspicious lesion. Electronically Signed By: Arturo [email or web address]:04/07/2021 12:47:44 ACR BI-RADS Category 2: Benign Finding(s) 3342F PARENCHYMAL PATTERN: (A) - The breast(s) demonstrate(s) scattered fibroglandular densities. BI-RADS CATEGORY: (2) - 2 RECOMMENDATION: (ANNUAL) - Recommend routine annual screening mammography. [id number] 1 year screening LATERALITY: (B)
== END 2021-04-07 09:07 | disposition home or self-care (01) ==
LOC: DI.N 09:06
DX: Z12.31 Encounter for screening mammogram for malignant neoplasm of breast (principal); Z80.3 Family history of malignant neoplasm of breast

== ENCOUNTER 2021-06-27 09:55 | Outpatient (CLI) | payer MEDICARE, OTHER ==
--- NOTE | 2021-06-27 10:56 | XRAY Report ---
PROCEDURE: Knee 3 View BILAT INDICATIONS: PAIN IN KNEE JOINT, BILAT TECHNIQUE: 3 views of the bilateral knee(s) were acquired. COMPARISON: None. FINDINGS: BONES/JOINT: No acute, displaced fracture or dislocation. No substantial suprapatellar joint effusio n. Mild osteophytosis about the patellofemoral compartments. Partially imaged right femoral intramedullary samson without evidence of hardware compromise. SOFT TISSUES: No significant abnormality. IMPRESSION: 1.No acute osseous abnormality. Reviewed by: Juan C Esposito MD on 06/27/2021 10:55 AM [facility] Approved by: Juan C Esposito MD on 06/27/2021 10:55 AM [facility] Station ID: [id number]
== END 2021-06-27 09:56 | disposition home or self-care (01) ==
LOC: DI.N 09:55
PROVIDERS: ATTEND Physician Assistant
DX: M25.561 Pain in right knee (principal); M25.562 Pain in left knee

== ENCOUNTER 2021-07-04 09:39 | Outpatient (CLI) | payer MEDICARE, OTHER ==
--- NOTE | 2021-07-04 15:11 | XRAY Report ---
PROCEDURE: Hip w/Pelvis 2-3V LT INDICATIONS: LEFT LEG PAIN TECHNIQUE: AP pelvis with lateral view(s) of the left hip hip(s). COMPARISON: X-ray pelvis one view, 11/22/2019. X-ray left femur 2 view, 07/04/2021. FINDINGS: Bones: No fractures or dislocations. Old right superior and inferior pubic ramal fractures. The left femoral neck fracture with internal fixation, unchanged from 11/20/2019. Old right femoral fracture w ith internal fixation is also unchanged. No suspicious bony lesions. There is severe degenerative dis c disease at L4-L5. Soft tissues: The visualized bowel gas pattern is normal. No suspicious soft tissue calcifications. IMPRESSION: 1. No acute osseous amenities. 2. Old left femoral neck fracture with internal fixation. 3. Severe degenerative disc disease at L4-L5 Reviewed by: Brandt Hernandez MD on 07/04/2021 3:10 PM PST Approved by: Brandt Hernandez MD on 07/04/2021 3:10 PM PST Station ID: [id number]
--- NOTE | 2021-07-04 21:20 | XRAY Report ---
PROCEDURE: Femur 2V LT INDICATIONS: LEFT LEG PAIN TECHNIQUE: 2 views of the femur were acquired. COMPARISON: None. FINDINGS: Bones: Right femoral samson and fixation are present. Hardware is intact without evidence of hardware fr acture or visualized periprosthetic loosening. Partial fixation hardware appears to be overlying the incompletely visualized right hip. No suspicious bony lesions. Soft tissues: No suspicious soft tissue calcifications or masses. IMPRESSION: Postsurgical changes. No visualized acute fracture or dislocation. However, occult injury cannot be e xcluded. Recommend short interval imaging follow-up in 7-10 days as clinically indicated for addition al evaluation. Reviewed by: Delmi Avina MD on 07/04/2021 9:18 PM PST Approved by: Delmi Avina MD on 07/04/2021 9:18 PM PST Station ID: [id number]
== END 2021-07-04 09:40 | disposition home or self-care (01) ==
LOC: DI.N 09:39
PROVIDERS: ATTEND Internal Medicine
DX: M79.605 Pain in left leg (principal)

== ENCOUNTER 2022-07-14 08:58 | Outpatient (CLI) | payer MEDICARE, OTHER ==
--- NOTE | 2022-07-14 13:38 | XRAY Report ---
PROCEDURE: Shoulder 3 View RT INDICATIONS: AC JOINT PAIN TECHNIQUE: 3 views of the shoulder were acquired. COMPARISON: Right shoulder radiographs 11/17/2019 FINDINGS: No acute fracture or dislocation identified. Mild AC joint hypertrophy present. Calcificati on present adjacent to the humeral head. Mild glenohumeral joint degenerative changes likely present IMPRESSION: No acute fracture or dislocation. If symptoms persist, follow-up radiographs and/or CT or MRI may be helpful for further evaluation. Calcification present adjacent to the humeral head could indicate changes of calcific tendinopathy. Reviewed by: Ned Lynne MD on 07/14/2022 1:37 PM PDT Approved by: Ned Lynne MD on 07/14/2022 1:37 PM PDT Station ID: [id number]
== END 2022-07-14 08:59 | disposition home or self-care (01) ==
LOC: DI 08:58
PROVIDERS: ATTEND Internal Medicine
DX: M19.011 Primary osteoarthritis, right shoulder (principal); M25.811 Other specified joint disorders, right shoulder

== ENCOUNTER 2022-08-04 08:13 | Outpatient (CLI) | payer MEDICARE, OTHER ==
--- NOTE | 2022-08-04 12:11 | DEXA Report ---
PROCEDURE: Dexa Spine and/or Hip INDICATIONS: POST MENOPAUSAL TECHNIQUE: Dual energy x-ray absorptiometry (DXA) was performed on a [employer] System. Regions measur ed are the AP Spine, femoral neck, and if needed forearm. COMPARISON: DEXA 03/15/2020. FINDINGS: Lumbar Spine: Bone Mineral Density 1.118 g/cm/cm,T score -0.5, normal, decreased by 5.0% when compared tot he ex am from 03/15/2020. Left forearm: Bone Mineral Density 0.755 g/cm/cm, T score -1.4, osteopenia, not significantly changed when compared to the exam from 03/15/2020. (T score greater or equal to -1.0: NORMAL) (T score from -1.1 to -2.4: OSTEOPENIA) (T score less than or equal to -2.5 to: OSTEOPOROSIS) Impression: 1.Bone mineral density within the osteopenia range at the left forearm and not significantly changed when compared to the exam from 03/15/2020. 2.Interval decrease in bone mineral density at the lumbar spine, which remains within the normal rang e. Patients with diagnosis of osteoporosis or osteopenia should have regular bone mineral density assess ment. For those eligible for Medicare, routine testing is allowed once every 2 years. Testing frequ ency can be increased for patients who have rapidly progressing disease or for those who are receivin g medical therapy to restore bone mass. Reviewed by: Ned Hernandez MD on 08/04/2022 12:09 PM PDT Approved by: Ned Hernandez MD on 08/04/2022 12:09 PM PDT Station ID: [id number]
== END 2022-08-04 08:14 | disposition home or self-care (01) ==
LOC: DI 08:13
PROVIDERS: ATTEND Internal Medicine
DX: M85.88 Other specified disorders of bone density and structure, other site (principal)

== ENCOUNTER 2022-10-02 09:05 | Outpatient (CLI) | payer MEDICARE, OTHER | END 2022-10-02 09:06 | disposition home or self-care (01) | LOC: DI 09:05 | PROVIDERS: ATTEND Internal Medicine | DX: Z53.9 Procedure and treatment not carried out, unspecified reason (principal) ==

== ENCOUNTER 2022-10-02 12:13 | Outpatient (CLI) | payer MEDICARE, OTHER | END 2022-10-02 12:14 | disposition home or self-care (01) | LOC: LAB.N 12:13 | PROVIDERS: ATTEND Internal Medicine | DX: Z53.9 Procedure and treatment not carried out, unspecified reason (principal) ==

== ENCOUNTER 2022-10-02 12:31 | Outpatient (CLI) | payer MEDICARE, OTHER ==
--- NOTE | 2022-10-02 15:25 | XRAY Report ---
PROCEDURE: Mandible Bilat INDICATIONS: JAW PAIN TECHNIQUE: 4 views of the mandible were acquired. COMPARISON: None FINDINGS: Bones: No fractures or dislocations. No suspicious bony lesions. No erosions within the mandibular head. No periarticular osteophytes. Soft tissues: Visualized sinuses appear clear. No suspicious soft tissue densities. IMPRESSION: Mandibular heads demonstrate normal morphology without appreciable arthritic change. No gross disloca tion. If concern persists, MRI TMJs recommended. Reviewed by: Delmi Avina MD on 10/02/2022 3:23 PM PDT Approved by: Delmi Avina MD on 10/02/2022 3:23 PM PDT Station ID: [id number]
== END 2022-10-02 23:59 | disposition home or self-care (01) ==
LOC: DI.N 12:31
PROVIDERS: ATTEND Internal Medicine
DX: R68.84 Jaw pain (principal)

== ENCOUNTER 2023-03-30 08:57 | Outpatient (CLI) | payer MEDICARE, OTHER ==
--- NOTE | 2023-03-30 20:12 | XRAY Report ---
PROCEDURE: Abdomen 1 View X-Ray INDICATIONS: DIARRHEA TECHNIQUE: One view of the abdomen acquired. COMPARISON: None. FINDINGS: Surgical changes and devices: Right upper quadrant cholecystectomy clips. Sternotomy wires are partia lly imaged. Postsurgical changes are seen in both proximal femurs. Bowel: Bowel gas pattern is nonspecific without signs of obstruction. Soft tissues: No suspicious abdominal calcifications. Visualized solid organ contours appear normal in size. Bones: No suspicious bony lesions. Multiple fracture deformities in the right superior and inferior pubic rami. Degenerative changes in the pubic symphysis, sacroiliac joints, and spine. IMPRESSION: Nonspecific nonobstructive bowel gas pattern. Reviewed by: Ned Hernandez MD on 03/30/2023 8:11 PM PST Approved by: Ned Hernandez MD on 03/30/2023 8:11 PM PST Station ID: [id number]
== END 2023-03-30 08:58 | disposition home or self-care (01) ==
LOC: DI 08:57
PROVIDERS: ATTEND Physician Assistant
DX: R19.7 Diarrhea, unspecified (principal)

== ENCOUNTER 2024-01-18 09:03 | Outpatient (CLI) | payer MEDICARE, OTHER ==
--- NOTE | 2024-01-18 15:14 | XRAY Report ---
PROCEDURE: Knee 3V BL INDICATIONS: BILATERAL KNEE PAIN TECHNIQUE: 3 views of the knee(s) were acquired. COMPARISON: The to 2521 FINDINGS: Bones: No fractures or dislocations. No suspicious bony lesions. Right knee demonstrates partial femoral fixation. Hardware is intact without evidence of hardware fracture or periprosthetic lucency to suggest loosening. There is overall moderate tricompartmental arthritic change, slightly more prom inent laterally on the left. Left lateral compartment demonstrates mild progression. No erosions.. Mi nimal particular osteophytes are present most prominent in the patellofemoral region. Soft tissues: No knee joint effusion. No suspicious soft tissue calcifications or masses. 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 Reviewed by: Delmi Avina MD on 01/18/2024 3:13 PM PDT Approved by: Delmi Avina MD on 01/18/2024 3:13 PM PDT Station ID: [id number]
== END 2024-01-18 09:04 | disposition home or self-care (01) ==
LOC: DI 09:03
PROVIDERS: ATTEND Internal Medicine
DX: M17.0 Bilateral primary osteoarthritis of knee (principal)